=== PATIENT | female | born 1970 | race Caucasian/White ===

== ENCOUNTER 2017-10-02 20:00 | Emergency (ER) | payer BC ==
[2017-10-02] MEDS ORDERED: Cyclobenzaprine 10 MG Tab PO ONE (20:01)
[2017-10-02 20:11] VITALS: BP 144/88
--- NOTE | 2017-10-02 20:21 | EDM.PDOC ---
ED HPI GENERAL MEDICAL PROBLEM - General Chief Complaint: General Stated Complaint: BACK PAIN Time Seen by Provider: 10/02/17 20:01 Source of Information: Reports: Patient - History of Present Illness INITIAL COMMENTS - FREE TEXT/NARRATIVE: Nini is a 47 year old female who presents to the ED with complaints of sudden onset lower back pain. She reports that she was bending over to put her shoes on and had an instant sharp pain in her mid/lower back. She reports that initially it was very sharp and intense, but it has improved to be more of a constant dull ache. Reports pain is localized to her mid/lower back. Denies any radiation of pain down her legs. Denies any numbness, tingling, or weakness in her lower extremities. She reports that it happened 2 hours prior to ED presentation. It has improved some. She reports she took 600 mg ibuprofen and applied heat prior to presentation. She feels that the heat helped lessen the pain. Does report she may have injured her back a number of years ago, but can' t remember how/what was found. Denies any other injury other than bending down. 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, Other (see below) (heat) Middle Back Pain Score (Numeric/FACES): 4 - Related Data Allergies Allergy/AdvReac Type Severity Reaction Status Date / Time Penicillins Allergy Swollen Verified 10/02/17 20:02 Tongue Home Meds: Home Meds Cyclobenzaprine [Flexeril] 10 mg PO TID PRN #30 tab 10/02/17 [Rx] Past Medical History - Past Health History Medical/Surgical History: Denies Medical/Surgical History Social & Family History - Family History Family Medical History: Noncontributory - Tobacco Use Smoking Status *Q: Current Every Day Smoker Years of Tobacco use: 20 Packs/Tins Daily: 0.5 - Caffeine Use Caffeine Use: Reports: None - Recreational Drug Use Recreational Drug Use: No ED ROS GENERAL - Review of Systems Review Of Systems: ROS reveals no pertinent complaints other than HPI. ED EXAM, GENERAL - Physical Exam Exam: See Below Exam Limited By: No Limitations General Appearance: Alert, WD/WN, Mild Distress Eye Exam: Bilateral Eye: EOMI, Normal Fundi, Normal Inspection, PERRL Head: Atraumatic, Normocephalic Neck: Normal Inspection, Supple, Non-Tender, Full Range of Motion Respiratory/Chest: No Respiratory Distress, Lungs Clear, Normal Breath Sounds, No Accessory Muscle Use, Chest Non-Tender Cardiovascular: Normal Peripheral Pulses, Regular Rate, Rhythm, No Edema, No Gallop, No JVD, No Murmur, No Rub Peripheral Pulses: 2+: Dorsalis Pedis (L), Dorsalis Pedis (R) GI/Abdominal: Normal Bowel Sounds, Soft, Non-Tender, No Organomegaly, No Distention, No Abnormal Bruit, No Mass Back Exam: Decreased Range of Motion, Muscle Spasm. No: CVA Tenderness (L), CVA Tenderness (R), Paraspinal Tenderness, Vertebral Tenderness Extremities: Normal Inspection, Normal Range of Motion, Non-Tender, Normal Capillary Refill, No Pedal Edema Neurological: Alert, Oriented, CN II-XII Intact, Normal Cognition, Normal Gait, Normal Reflexes, No Motor/Sensory Deficits Psychiatric: Anxious Skin Exam: Warm, Dry, Intact, Normal Color, No Rash Lymphatic: No Adenopathy Course - Vital Signs Last Recorded V/S: Last Vital Signs Temp 98.1 F 10/02/17 20:03 Pulse 77 10/02/17 20:03 Resp 18 10/02/17 20:03 BP 144/88 H 10/02/17 20:03 Pulse Ox 98 10/02/17 20:03 - Orders/Labs/Meds Orders: Active Orders 24 hr Category Date Time Status Lumbar Spine 2 or 3V [CR] Stat Exams 10/02/17 20:02 Taken Thoracic Spine 2V [CR] Stat Exams 10/02/17 20:01 Taken Meds: Medications Discontinued Medications Generic Name Dose Route Start Last Admin Trade Name Freq PRN Reason Stop Dose Admin Cyclobenzaprine HCl 1 packet 10/02/17 21:01 10/02/17 21:04 Take Home: Cyclobenzaprine 10 Mg, 4 Tab Pack PO 10/02/17 21:02 Not Given ONETIME ONE - Re-Assessments/Exams Free Text/Narrative Re-Assessment/Exam: Discussed xray findings with patient. Xray of lumbar and thoracic spine appear normal. Does have some minimal marginal osteophyte formation consistent with degenerative changes of the thoracic spine, otherwise all vertebrae are well aligned and disc spaces are maintained throughout. Departure - Departure Time of Disposition: 21:02 Disposition: Home, Self-Care 01 Condition: Fair Clinical Impression: Spasm of muscle, back Low back pain Qualifiers: Chronicity: acute Back pain laterality: midline Sciatica presence: without sciatica Qualified Code(s): M54.5 - Low back pain - Discharge Information Prescriptions: Cyclobenzaprine [Flexeril] 10 mg PO TID PRN #30 tab PRN Reason: Pain Instructions: Muscle Cramps and Spasms, [id number], Back Pain, Adult, Easy-to -Read Referrals: Edgardo Rice MD [Primary Care Provider] - Forms: ED Department Discharge Additional Instructions: Referral for Physical Therapy Flexeril as needed for spasm/pain Apply heat to affected area Ibuprofen 800 mg every 8 hours as needed for pain Can also use Tylenol 650 mg every 6 hours as needed Follow up if symptoms worsen or do not improve Discussed if symptoms do not improve, may need to proceed with MRI - My Orders Last 24 Hours: My Active Orders 10/02/17 20:01 Thoracic Spine 2V [CR] Stat 10/02/17 20:02 Lumbar Spine 2 or 3V [CR] Stat - Assessment/Plan Last 24 Hours: My Active Orders 10/02/17 20:01 Thoracic Spine 2V [CR] Stat 10/02/17 20:02 Lumbar Spine 2 or 3V [CR] Stat
[2017-10-02] MEDS ORDERED: Take Home: Cyclobenzaprine 10 MG Tab, 4 Tab Pack PO ONE (21:01)
== END 2017-10-02 21:10 | disposition home or self-care (01) ==
LOC: CC.ED 20:00
DX: M62.830 Muscle spasm of back (principal); F17.210 Nicotine dependence, cigarettes, uncomplicated; Z88.0 Allergy status to penicillin
CPT/HCPCS: 72070; 72100; 99283; A9270-GY